=== PATIENT | female | born 2005 | race Two or more races ===

== ENCOUNTER 2024-06-28 15:22 | Emergency (ER) | payer OTHER, SELFPAY ==
[2024-06-28 15:22] VITALS: BMI 26.7
[2024-06-28 15:45] VITALS: BP 121/83; PULSE 80; RESP 18; TEMP 36.7; O2SAT 97
--- NOTE | 2024-06-28 15:59 | EDNOTE_ITS ---
Upper Extremity Injury RME/HPI General Chief Complaint: Hand/Wrist Problems Stated Complaint: SMASHED LEFT HAND IN DOOR Time Seen by Provider: 06/28/24 15:24 Arrival date/time: 06/28/24 15:22 This is a 19-year-old female that is brought in by family with complaints of smashing left hand on the door at work. Patient does not remember the last time she had a tetanus shot. Patient denies any other injuries. Patient denies any chance of . Related Data Home Medications ?Medication ?Instructions ?Recorded ?Confirmed NO MEDS ##0 08/20/12 Previous Rx's ?Medication ?Instructions ?Recorded ibuprofen 800 mg tablet 800 mg PO Q6H PRN pain #10 t abs 06/28/24 Allergies Allergy/AdvReac Type Severity Reaction Status Date / Time NKA* Allergy Uncoded 06/28/24 15:24 Course Orders Category Date Time Status Splint / Immobilizer STAT Care 06/28/24 17:46 Active XR hand LT 2V Stat Exams 06/28/24 15:59 Completed Acetaminophen Tab [Tylenol ES Tab] Med 06/28/24 15:59 Discontinued 1,000 mg PO X1 ONE Ibuprofen Tab [Motrin Tab] Med 06/28/24 15:59 Discontinued 800 mg PO X1 ONE TET,DIP/PERT AC (Adult)-Tdap [Boostrix Adult (Tdap) Med 06/28/24 15:59 Discontinued Vacc] 0.5 ml IMI .ONCE ONE Vital Signs Vital signs: Vital Signs Temperature 98.1 F 06/28/24 15:45 Pulse Rate 80 06/28/24 15:45 Respiratory Rate 18 06/28/24 15:45 Blood Pressure 121/83 06/28/24 15:45 Pulse Oximetry (%) 97 06/28/24 15:45 Oxygen Delivery Method Room Air 06/28/24 15:45 Extremity Injury MDM Narrative MDM Narrative:: left hand x ray: FINDINGS: Ill-defined lucency first digit, proximal phalanx, distal metaphysis. Otherwise, no evidence of fracture or dislocation. No foreign body no significant degenerative changes: No evidence of fracture or dislocation. No chronic degenerative changes. No foreign bodies. IMPRESSION: Ill-defined lucency first digit proximal phalanx as described above may represent nondisplaced fracture. Otherwise negative exam. I spoke to patient at length. I spoke to her that it is probably a good idea to get a repeat x-ray because of the ambiguous results from this x-ray. Today we will put patient in finger splint. Patient told to follow-up with primary provider in 1 to 2 days. Come back to the emergency room if symptoms change or worsen. Medications / Prescriptions Medication administrations:: Medication Administration History Discontinued Medications Acetaminophen (Acetaminophen 500 Mg Tablet) 1,000 mg PO X1 ONE Stop: 06/28/24 16:00 Last Admin: 06/28/24 17:26 Dose: 1,000 mg Documented By: JANES Comments: Barcode on medication not scanning Diphtheria/Tetanus/Acell Pertussis (Diphth,Pertuss(Acell),Tet Vac 0.5 Ml Syr- Adult) 0.5 ml IMi .ONCE ONE Stop: 06/28/24 16:00 Last Admin: 06/28/24 17:27 Dose: 0.5 ml Documented By: JANES Ibuprofen (Ibuprofen Tab 400 Mg Tablet) 800 mg PO X1 ONE Stop: 06/28/24 16:00 Last Admin: 06/28/24 17:26 Dose: 800 mg Documented By: JANES Discharge Plan Plan Patient Disposition: HOME (Self Care) Patient condition on transfer: Stable Prescriptions/Referrals Prescriptions/Med Rec: New ibuprofen 800 mg tablet 800 mg PO Q6H PRN (Reason: pain) Qty: 10 0RF No Action NO MEDS Qty: 0 Referrals: Alida Robbins PA-C [Primary Care Provider] - In 1 week Problem List Clinical Impression: Contusion of finger Patient/Caregiver Discharge Instructions Discharge Activity: activity as tolerated Education Materials: Bone Contusion Additional Instructions: Follow up with primary provider in 1-2 days. Come back to ED if symptoms change or worsen. May need to repeat x-ray to make sure there is no fracture. Print Language: Georgian Stand Alone Forms: Karlene Award Info., Patient Portal Info Letter DORCAS/NARAYAN Supervising Physician DORCAS/NARAYAN Supervising Physician: [email or web address]
--- NOTE | 2024-06-28 15:59 | XR_ITS ---
Examination: Hand, left Technique: Hand AP, oblique, lateral 3 views Date and time of exam: 06/28/2024, 4:13 PM INDICATION: Pain. FINDINGS: Ill-defined lucency first digit, proximal phalanx, distal metaphysis. Otherwise, no evidence of fracture or dislocation. No foreign body no significant degenerative changes: No evidence of fracture or dislocation. No chronic degenerative changes. No foreign bodies. IMPRESSION: Ill-defined lucency first digit proximal phalanx as described above may represent nondisplaced fracture. Otherwise negative exam.
[2024-06-28] MEDS: ACETAMINOPHEN 500 MG TABLET 1000 MG PO (17:26)
[2024-06-28] MEDS: IBUPROFEN TAB 400 MG TABLET 800 MG PO (17:26)
[2024-06-28] MEDS: DIPHTH,PERTUSS(ACELL),TET VAC 0.5 ML SYR- ADULT IMi (17:27)
[2024-06-28 17:32] VITALS: BP 135/83; PULSE 79; RESP 16; TEMP 36.8; O2SAT 99
== END 2024-06-28 18:00 | disposition home or self-care (01) ==
PROVIDERS: Emergency Provider Emergency Medicine; PCP Physician Assistant
DX: S60.022A Contusion of left index finger without damage to nail, initial encounter (principal); Z23 Encounter for immunization; W23.0XXA Caught, crushed, jammed, or pinched between moving objects, initial encounter
CPT/HCPCS: 73120; 90471; 90715; 99283; A9270